=== PATIENT | female | born 1985 | race Caucasian/White ===

== ENCOUNTER 2018-04-12 13:10 | Emergency (ER) | payer OTHER ==
[2018-04-12 15:22] LABS: ABSOLUTE BASOPHIL COUNT 0 /CUMM (0.0-0.2); ABSOLUTE EOSINOPHIL COUNT 0 /CUMM (0.0-0.7); ABSOLUTE GRANULOCYTE CT 7.5 /CUMM (1.4-6.5); ABSOLUTE LYMPH COUNT 0.8 /CUMM (1.2-3.4); ABSOLUTE MONOCYTE COUNT 0.1 /CUMM (0.10-0.60); BASOPHIL % 0.4 % (0.0-2.0); EOSINOPHIL % 0 % (0-5); HEMATOCRIT 42.4 % (37-47); MEAN CORPUSCULAR HGB 27.6 PG (27.0-31.0); MEAN CORPUSCULAR VOLUME 83.9 FL (81.0-99.0); MEAN PLATELET VOLUME 9.2 FL (7.4-10.4); PLATELET COUNT 251 /CUMM (130-400); RBC DISTRIBUTION WIDTH 14.4 % (11.5-14.5); RED BLOOD CELL CT 5.05 /CUMM (4.20-5.40); WHITE BLOOD CELL COUNT 8.5 /CUMM (4.8-10.8)
--- NOTE | 2018-04-12 15:37 | ED GENERAL ADULT ---
History of Present Illness General Chief Complaint: General Adult Stated Complaint: URI AND R SIDE OF BODY NUMBNESS X 1 WEEK Source: patient Exam Limitations: no limitations Vital Signs & Intake/Output Vital Signs & Intake/Output Vital Signs Date Time Temp Pulse Resp B/P B/P Pulse O2 O2 Flow FiO2 Mean Ox Delivery Rate 04/12 2013 98.4 74 18 135/86 99 Room Air 04/12 1746 98.4 74 18 135/86 99 04/12 1632 Room Air 04/12 1331 97.5 74 16 147/77 99 Room Air ED Intake and Output 04/13 0000 04/12 1200 Intake Total 0 Output Total Balance 0 Intake, Oral 0 Allergies Coded Allergies: NO KNOWN ALLERGIES (04/25/13) Reconcile Medications Amoxicillin/Potassium Clav (Augmentin 875-125 Tablet) 875 MG-125 MG TABLET 1 TAB PO BID ANTIBIOTIC, INFECTION (Reported) Cetirizine HCl (Zyrtec) 10 MG TABLET 1 TAB PO DAILY ALLERGIES (Reported) Oxycodone HCl/Acetaminophen (Percocet 5-325 MG Tablet) 5 MG-325 MG TABLET 1 TAB PO BID pain Prednisone 50 MG TABLET 1 TAB PO DAILY STEROID (Reported) Triage Note: PT STATES SHE HAS BEEN HAVING PAIN TO THE RT SIDE OF HER HEAD S/P WORKING OUT LAST WEEK. WAS DX WITH SINUS INFECTION, AND PUT ON MULIPLE ABX'S WHICH DOES NOT SEEM TO BE HELPING. STATES THAT SHE HAS PAIN BEHIND HER RIGHT EYE, AND TODAY HAS NUMBNESS FROM HER HEAD DOWN THE RIGHT SIDE OF HER BODY. Triage Nurses Notes Reviewed? yes Onset: Abrupt Duration: week(s): Timing: recent history : No Patient currently breastfeeds: No HPI: 32 year old female presents to the Emergency department with sinus pressure for the past 2 weeks. Pt now presents with persisting upper resp. symptoms and right sided numbness. Right pupil larger than left. Pt has been on 2 courses of antibiotics for the sinus pressure. The patient states she has a history of anxiety. She says this is different however. She noticed that her right pupil have been larger. She's having paresthesias and intermittent weakness to the right side of her body. Currently in the emergency Department her neurological exam is normal. I spoke with the on-call neurologist Dr. Troncoso is in agreement with the plan. Past History Travel History Traveled to [place] past 21 day No Medical History Any Pertinent Medical History? see below for history Psychiatric: anxiety Surgical History Surgical History: none Psychosocial History What is your primary language Azeri Tobacco Use: Never used ETOH Use: denies use Family History Hx Contributory? Yes (GRANDMOTHER - ANEURYSM) Review of Systems Review of Systems Constitutional: Reports: see HPI, weakness. Denies: diaphoresis, fever. EENTM: Reports: no symptoms, blurred vision (right eye), double vision (right eye), visual changes (right eye). Denies: nasal congestion. Respiratory: Reports: no symptoms. Cardiovascular: Reports: no symptoms. GI: Reports: no symptoms. Genitourinary: Reports: no symptoms. Musculoskeletal: Reports: see HPI. Skin: Reports: no symptoms. Denies: rash. Neurological/Psychological: Reports: see HPI, numbness (rihht side of body), weakness (right sided). Hematologic/Endocrine: Reports: no symptoms. Immunologic/Allergic: Reports: no symptoms. Physical Exam Physical Exam General Appearance: well developed/nourished, no apparent distress, alert, awake , moderate distress Head: atraumatic, normal appearance Ears, Nose, Throat: normal ENT inspection Neck: normal inspection, supple Respiratory: normal breath sounds, lungs clear Cardiovascular: regular rate/rhythm Peripheral Pulses: 4+ radial (R), 4+ radial (L) Gastrointestinal: soft, non-tender Back: normal range of motion Extremities: no edema, right sided weakness Neurologic/Psych: awake, alert, oriented x 3, motor weakness (right side) Skin: intact, normal color, warm/dry Core Measures ACS in differential dx? No CVA/TIA Diagnosis: No Sepsis Present: No Sepsis Focused Exam Completed? No Progress Differential Diagnoses I considered the following diagnoses in my evaluation of the patient: [Migraine, anxiety, CVA, TIA, aneurysm, multiple sclerosis, other neuromuscular diseases, Lyme disease, anaplasmosis, amyatrophic lateral sclerosis] Plan of Care: Orders Procedure Date/time Status LYME TITRE 04/12 1735 Active ANAPLASMA PHAGOCYTOPHILUM DNA 04/12 1735 Active URINALYSIS 04/12 1339 Complete TROPONIN LEVEL 04/12 1339 Complete HUMAN BETA HCG SCREEN 04/12 1339 Complete COMPREHENSIVE METABOLIC PANEL 04/12 1339 Complete CBC WITHOUT DIFFERENTIAL 04/12 1339 Complete EKG 04/12 1339 Active Laboratory Tests 04/12/18 1744: Lyme Disease Antibody Pending 04/12/18 1744: A.phagocytophil DNA PCR Pending 04/12/18 1630: Urine Color YEL, Urine Clarity CLEAR, Urine pH 8.0, Ur Specific Margie 1.015, Urine Protein NEG, Urine Ketones NEG, Urine Nitrite NEG, Urine Bilirubin NEG, Urine Urobilinogen 0.2, Ur Leukocyte Esterase NEG, Ur Microscopic EXAM NOT REQUIRED, Urine Hemoglobin NEG, Urine Glucose NEG 04/12/18 1514: Anion Gap 11, Estimated GFR > 60, BUN/Creatinine Ratio 28.0 H, Glucose 114 H, Calcium 9.3, Total Bilirubin 0.2, AST 46 H, ALT 57 H, Alkaline Phosphatase 61, Troponin I < 0.01, Total Protein 7.4, Albumin 4.3, Globulin 3.1, Albumin/ Globulin Ratio 1.4, Total Beta HCG NEGATIVE, CBC w Diff MAN DIFF ORDERED, RBC 5.05, MCV 83.9, MCH 27.6, MCHC 33.0, RDW 14.4, MPV 9.2, Gran % 89.0 H, Lymphocytes % 9.3 L, Monocytes % 1.3 L, Eosinophils % 0, Basophils % 0.4, Absolute Granulocytes 7.5 H, Absolute Lymphocytes 0.8 L, Absolute Monocytes 0.1, Absolute Eosinophils 0, Absolute Basophils 0, Platelet Estimate VERIFIED BY SMEAR, Normocytic RBCs VERIFIED, Normochromic RBCs VERIFIED Initial ED EKG: normal sinus rhythm Departure Departure Disposition: STILL A PATIENT Condition: Stable Clinical Impression Primary Impression: Headache Referrals: Ulises Barron MD (PCP/Family) Departure Forms: Customer Survey General Discharge Information Prescriptions: Current Visit Scripts Oxycodone HCl/Acetaminophen (Percocet 5-325 MG Tablet) 1 TAB PO BID #10 TAB Comments The patient was reevaluated in the ED. She says that for 2-3 weeks she's had a right-sided headache that is intermittent, pain behind the right eye. She's also had intermittent transient paresthesias, and weakness to the right side of her body. No chest pain or back pain. She also says that she had blurry vision in the right eye and that she had mild anisocoria. Currently in the ED on reevaluation her neurological exam is completely normal. Cranial nerves II through XII are intact. There is no focal weakness. There is no anisocoria, the extraocular muscles are normal. She reports her visual acuity is normal. There is no papilledema. No nuchal rigidity. No rash. CT noncontrast and CTA are negative. Labs are unremarkable. I discussed the case with Dr. Troncoso. Differential diagnosis includes multiple sclerosis, tick borne illness, migraine headache. She will follow-up with the neurologist, to return to the emergency department if worse. Critical Care Note Critical Care Note Critical Care Time: non-applicable
[2018-04-12] MEDS ORDERED: PREDNISONE50 M1 PO (15:43)
[2018-04-12] MEDS ORDERED: AUGMENTIN 875-1 EACH PO (15:43)
[2018-04-12] MEDS ORDERED: ZYRTEC10 M3 PO (15:44)
--- NOTE | 2018-04-12 16:36 | CT SCAN REPORT ---
EXAMINATION: CT HEAD WITHOUT CONTRAST CLINICAL INFORMATION: Facial numbness. Upper extremity numbness COMPARISON: None TECHNIQUE: Contiguous axial imaging was performed from the skull base to vertex without intravenous administration of contrast. DLP: 613 mGy-cm FINDINGS: There is no evidence of acute intracranial hemorrhage or territorial infarction. No abnormal mass effect or midline shift is seen. Lara to white matter differentiation is well preserved. No extra-axial fluid collections are identified. The ventricles are normal in size. There is no abnormal attenuation within the brain parenchyma. The osseous structures and soft tissues are normal. The mastoid air cells and visualized portions of the paranasal sinuses are well aerated. IMPRESSION: No acute intracranial pathology.
--- NOTE | 2018-04-12 20:04 | CT SCAN REPORT ---
EXAMINATION: CT ANGIOGRAM HEAD CLINICAL INFORMATION: Headache to rule out aneurysm. COMPARISON: Head CT performed earlier the same day. TECHNIQUE: Test bolus sequences followed by intravenous administration 100 mL of Optiray 320 intravenous contrast. Helical imaging was performed in the axial plane through the cranial compartment. Delayed postcontrast imaging of the head was also performed. The data was processed at the processing technologist's workstation for generation of MIP sequences. Three-dimensional volume rendered reformatted images were also generated at an offline 3-D workstation. Stenoses are graded per criteria similar to NASCET. FINDINGS: HEAD: There is no pathologic enhancement intracranially. There is no intracranial hemorrhage, hydrocephalus, extra-axial surface collection, midline shift, or other herniation pattern. Lara to white matter differentiation is diffusely maintained without evidence of an evolved acute territorial infarct. The basilar cisterns are preserved. No significant soft tissue abnormality. No acute osseous abnormality. The paranasal sinuses and the mastoid air cells are well-aerated. CRANIAL CTA: There is normal opacification of the major intracranial vessels. No acute proximal large vessel occlusion, focal flow-limiting stenosis, or saccular intracranial aneurysm is identified. No abnormal parenchymal enhancement or regional oligemia is visualized. IMPRESSION: Unremarkable CTA of the head. No aneurysms.
[2018-04-12 20:13] VITALS: BP 135/86
[2018-04-12] MEDS ORDERED: PERCOCET 5-3251 EACH PO ×2 (20:22→20:23)
== END 2018-04-12 20:35 ==
LOC: ERH 13:10
PROVIDERS: Physician Assistant
DX: R51 Headache (principal)
CPT/HCPCS: 86618; 87798; 81003; 93005; 93010; 96360